=== PATIENT | female | born 1960 | race Caucasian/White ===

== ENCOUNTER 2024-01-25 22:40 | Inpatient (IN) | payer OTHER ==
[~2024-01-25] VITALS: Ht 149.9 cm; Wt 59.0 kg
[2024-01-25] MEDS ORDERED: ATOR40TA75 PO (23:18)
[2024-01-25] MEDS ORDERED: LISI5TAB11 PO (23:18)
[2024-01-25] MEDS ORDERED: CLON0.2T PO (23:18)
[2024-01-25] MEDS ORDERED: BACL1TAB9 PO (23:18)
[2024-01-25] MEDS ORDERED: AMLO1TAB25 PO (23:18)
[2024-01-25] MEDS ORDERED: TROS20TA3 PO (23:18)
[2024-01-25] MEDS ORDERED: MED REC COMMENT (23:22)
[2024-01-25] MEDS ORDERED: GABA-1171 PO (23:22)
[2024-01-25] MEDS ORDERED: LEXA1TAB2 PO (23:22)
[2024-01-25] MEDS ORDERED: OMEP40CA5 PO (23:22)
[2024-01-25] MEDS ORDERED: HOME MED LIST COMPLETE! XX SCH (23:25)
[2024-01-25 23:44] LABS: HEMATOCRIT 42.4 % (36.0-47.0); MEAN CORPUSCULAR HEMOGLOBIN 32.8 pg (27.0-33.0); MEAN CORPUSCULAR HGB CONC 35.4 g/dl (32.0-36.5); MEAN CORPUSCULAR VOLUME 92.8 fl (80.0-96.0); PLATELET COUNT, AUTOMATED 235 10^3/uL (150-450); RED BLOOD COUNT 4.57 10^6/uL (4.00-5.40)
[2024-01-26 00:09] LABS: ETHYL ALCOHOL (ETHANOL) 0.007 % (0.000-0.010)
[2024-01-26 00:11] LABS: ALBUMIN 4.1 G/DL (3.2-5.2); ALKALINE PHOSPHATASE 106 U/L (46-116); ALT/SGPT 42 U/L (7.0-40); AST/SGOT 27 U/L (<34); BILIRUBIN,DIRECT 0.1 MG/DL (<0.4); BILIRUBIN,TOTAL 0.4 MG/DL (0.3-1.2); BLOOD UREA NITROGEN 13 MG/DL (9-23); CALCIUM LEVEL 8.9 MG/DL (8.3-10.6); CARBON DIOXIDE LEVEL 27 MMOL/L (20-31); CHLORIDE LEVEL 100 MMOL/L (98-107); CREATININE FOR GFR 0.57 MG/DL (0.55-1.30); GLOMERULAR FILTRATION RATE > 60.0 (>45); GLUCOSE, FASTING 89 MG/DL (74-106); POTASSIUM SERUM 4.1 MMOL/L (3.5-5.1); SALICYLATE LEVEL < 3.0 MG/DL (<30); SODIUM LEVEL 133 MMOL/L (136-145); TOTAL PROTEIN 6.8 G/DL (5.7-8.2)
[2024-01-26 00:13] LABS: THYROID STIMULATING HORMONE 1.445 uIU/ML (0.55-4.78)
[2024-01-26] MEDS: ACETAMINOPHEN TAB 650MG DOSE (2X325MG) PO ONE ×2 (02:09→11:31)
[2024-01-26 04:15] LABS: AMPHETAMINES LEVEL URINE NEGATIVE (NEGATIVE); BARBITURATES URINE NEGATIVE (NEGATIVE); COCAINE METABOLITE URINE NEGATIVE (NEGATIVE); METHADONE URINE NEGATIVE (NEGATIVE); OPIATES URINE NEGATIVE (NEGATIVE); PHENCYCLIDINE URINE NEGATIVE (NEGATIVE)
[2024-01-26 04:16] LABS: BENZODIAZEPINES URINE NEGATIVE (NEGATIVE)
[2024-01-26 04:33] LABS: CANNABINOIDS URINE POSITIVE (NEGATIVE)
[2024-01-26] MEDS: GABAPENTIN 100 MG CAP PO ONE (06:17)
[2024-01-26] MEDS: BACLOFEN 10 MG TAB PO ONE (06:18)
[2024-01-26] MEDS: GABAPENTIN 100 MG CAP PO SCH ×2 (09:00→16:00)
[2024-01-26] MEDS: BACLOFEN 10 MG TAB PO SCH ×2 (09:00→20:39)
[2024-01-26] MEDS: ESCITALOPRAM OXALATE 10 MG TAB (LEXAPRO) PO SCH (09:00)
[2024-01-26] MEDS: OMEPRAZOLE 20MG CAP PO SCH (11:01)
[2024-01-26] MEDS: lisinopriL 5 MG TAB PO SCH (11:09)
[2024-01-26] MEDS: ATORVASTATIN 20 MG TAB PO SCH (11:10)
[2024-01-26] MEDS: LORazepam 1 MG TAB PO ONE (11:31)
[2024-01-26] MEDS ORDERED: MAALOX 30 ML SUSP *UDC PO PRN (17:05)
[2024-01-26 18:51] VITALS: BP 144/81; TEMP 98; O2SAT 98
[2024-01-26] MEDS ORDERED: HOME MED LIST COMPLETE! XX SCH (20:35)
[2024-01-26 20:37] VITALS: BP 133/85
[2024-01-26] MEDS: NICOTINE 14 MG/24 HR TRANSDERMAL TD SCH (20:38)
[2024-01-26] MEDS: cloNIDine 0.2 MG TAB PO SCH (20:39)
[2024-01-26] MEDS: traZODone 50 MG TAB PO PRN (20:40)
[2024-01-26] MEDS ORDERED: cloNIDine 0.2 MG TAB PO SCH (21:00)
[2024-01-27 08:10] VITALS: BP 142/80
[2024-01-27] MEDS: lisinopriL 5 MG TAB PO SCH (08:13)
[2024-01-27] MEDS: ATORVASTATIN 20 MG TAB PO SCH (08:13)
[2024-01-27] MEDS: OMEPRAZOLE 20MG CAP PO SCH (08:14)
[2024-01-27] MEDS: OLANZapine 2.5MG TABLET PO SCH (09:00)
[2024-01-27] MEDS: ACETAMINOPHEN TAB 650MG DOSE (2X325MG) PO PRN (15:45)
[2024-01-28] MEDS: IBUPROFEN 400MG TAB PO PRN (02:36)
[2024-01-28 06:46] VITALS: BP 101/76; TEMP 97.2; O2SAT 97
[2024-01-28 07:53] LABS: CHOLESTEROL RISK RATIO 2.5 (<5); LDL CHOLESTEROL 87.6 MG/DL (<100)
[2024-01-28 08:03] VITALS: BP 138/78
[2024-01-28 18:58] VITALS: BP 143/87; TEMP 97.5
[2024-01-28] MEDS: OLANZapine 5 MG TAB PO SCH (20:42)
[2024-01-29 06:15] VITALS: BP 152/84; TEMP 98; O2SAT 98
[2024-01-29] MEDS: DIVALPROEX 250MG *ER* TAB PO SCH (11:32)
[2024-01-29] MEDS: MOM 30ML SUSPENSION UDC PO PRN (13:27)
[2024-01-29 17:57] VITALS: BP 150/80; TEMP 97.2; O2SAT 97
[2024-01-30 06:31] VITALS: BP 138/65; TEMP 97.1
[2024-01-30 16:11] VITALS: BP 140/69; TEMP 98; O2SAT 96
[2024-01-31 06:45] VITALS: BP 144/71; TEMP 98; O2SAT 98
[2024-01-31 15:51] VITALS: BP 139/66; TEMP 97.7; O2SAT 100
[2024-02-01] MEDS: diphenhydrAMINE 25MG CAP PO PRN (13:20)
[2024-02-01 15:57] VITALS: BP 124/68; TEMP 98; O2SAT 100
[2024-02-01 21:15] VITALS: BP 152/82
[2024-02-02 06:40] VITALS: BP 158/80; TEMP 98; O2SAT 98
[2024-02-02 08:13] VITALS: BP 136/63
[2024-02-02] MEDS: DIVALPROEX 500MG *ER* TAB PO SCH (15:26)
[2024-02-02 18:00] VITALS: BP 125/60; TEMP 97.9; O2SAT 98
[2024-02-02 20:33] VITALS: BP 148/78
[2024-02-03 06:48] VITALS: BP 142/80; TEMP 98.8; O2SAT 97
[2024-02-03 13:25] VITALS: BP 124/60
[2024-02-03 16:16] VITALS: BP 157/72; TEMP 98
[2024-02-03 18:55] VITALS: BP 140/78; TEMP 98
[2024-02-04 06:44] VITALS: BP 144/68; TEMP 97.2; O2SAT 99
[2024-02-04 18:23] VITALS: BP 150/72; TEMP 98
[2024-02-05 06:41] VITALS: BP 158/94; TEMP 97.5; O2SAT 100
[2024-02-05 07:06] VITALS: BP 154/76
[2024-02-05 18:34] VITALS: BP 140/76; TEMP 98.2
[2024-02-05] MEDS: OLANZapine 5 MG TAB PO SCH (20:29)
[2024-02-06 06:39] VITALS: BP 146/67; TEMP 97.4; O2SAT 100
[2024-02-06 16:43] VITALS: BP 140/79; TEMP 97.1; O2SAT 100
[2024-02-06 20:09] VITALS: BP 156/70
[2024-02-07 06:39] VITALS: BP 148/88; TEMP 97.5; O2SAT 98
[2024-02-07 13:46] VITALS: BP 129/71; TEMP 98.3; O2SAT 99
[2024-02-07 16:55] VITALS: BP 145/81; TEMP 97.9; O2SAT 98
[2024-02-08 06:27] VITALS: BP 127/69; TEMP 97.2; O2SAT 98
[2024-02-08] MEDS: SODIUM CHLORIDE NASAL 0.65% SPRAY BTL (OCEAN) PRN (14:15)
[2024-02-08 16:21] VITALS: BP 111/58; TEMP 97.8; O2SAT 100
[2024-02-08 20:42] VITALS: BP 132/86
[2024-02-09 06:19] VITALS: BP 130/86; TEMP 98.3; O2SAT 98
[2024-02-09 08:07] VITALS: BP 145/72
[2024-02-09 18:39] VITALS: BP 133/73; TEMP 98.3
[2024-02-09] MEDS: OLANZapine 5 MG TAB PO SCH (20:20)
[2024-02-10 06:37] VITALS: BP 128/76; TEMP 97.8; O2SAT 100
[2024-02-10 08:45] VITALS: BP 136/79
[2024-02-10 19:00] VITALS: BP 134/85; TEMP 97.7
[2024-02-11 05:25] VITALS: BP 139/75; TEMP 97.1; O2SAT 100
[2024-02-11 08:37] VITALS: BP 136/65
[2024-02-11 18:18] VITALS: BP 133/65; TEMP 98.2
[2024-02-12 06:06] VITALS: BP 155/70; TEMP 98.1; O2SAT 98
[2024-02-12 08:04] VITALS: BP 155/70
[2024-02-12] MEDS ORDERED: OMEP-173 PO (08:53)
[2024-02-12] MEDS ORDERED: TRAZ-252 PO (08:53)
[2024-02-12] MEDS ORDERED: DEPA500T2 PO (08:53)
[2024-02-12] MEDS ORDERED: OLAN7.5T8 PO (08:53)
[2024-02-12] MEDS ORDERED: NICO14PA TD (08:53)
== END 2024-02-12 13:00 | disposition home or self-care (01) | DRG 753 ==
LOC: M ED 22:40 → M ED INP 01-26 17:04 → M PSY 01-26 17:33
PROVIDERS: ADMIT Student in an Organized Health Care Education/Training Program; ATTEND Student in an Organized Health Care Education/Training Program
DX: F31.2 Bipolar disorder, current episode manic severe with psychotic features (principal); G40.909 Epilepsy, unspecified, not intractable, without status epilepticus; G35 Multiple sclerosis; I50.32 Chronic diastolic (congestive) heart failure; F41.9 Anxiety disorder, unspecified; I11.0 Hypertensive heart disease with heart failure; E78.5 Hyperlipidemia, unspecified; Z79.899 Other long term (current) drug therapy; Z91.410 Personal history of adult physical and sexual abuse; Z91.411 Personal history of adult psychological abuse; Z11.52 Encounter for screening for COVID-19; Z62.810 Personal history of physical and sexual abuse in childhood